=== PATIENT | female | born 1985 | race American Indian/Alaskan Native ===

== ENCOUNTER 2017-09-15 03:12 | Emergency (ER) | payer OTHER ==
[2017-09-15 05:22] LABS: Hematocrit 37.3 % (30.3-42.9); Hemoglobin 12.6 gm/dl (10.1-14.3); Mean Corpuscular HGB Conc 34 % (30-34); Mean Corpuscular Hemoglobin 30 pg (28-32); Mean Corpuscular Volume 88 fl (79-97); Platelet Count 239 K/mm3 (140-440); Red Blood Count 4.22 M/mm3 (3.65-5.03); Red Cell Distribution Width 13.4 % (13.2-15.2); White Blood Count 6.6 K/mm3 (4.5-11.0)
[2017-09-15 05:31] LABS: Bacteria,Urine 2+ /HPF (Negative); Bilirubin,Urine NEG (Negative); Blood,Urine LG (Negative); Ketones,Urine NEG (Negative); Leukocyte Esterase,Urine NEG (Negative); Mucus,Urine 2+ /HPF; Nitrite,Urine NEG (Negative); Urobilinogen,Urine < 2.0 mg/dL (<2.0)
[2017-09-15 05:39] LABS: Albumin 4.3 g/dL (3.9-5); Albumin/Globulin Ratio 1.4 %; Alkaline Phosphatase 69 units/L (35-129); BUN/Creatinine Ratio 16; Blood Urea Nitrogen 11 mg/dL (7-17); Calcium 9.4 mg/dL (8.4-10.2); Carbon Dioxide 24 mmol/L (22-30); Chloride 103.3 mmol/L (98-107); Glucose 86 mg/dL (65-100); Lipase 33 units/L (13-60); Sodium 140 mmol/L (137-145); Total Protein 7.4 g/dL (6.3-8.2)
[2017-09-15 06:03] LABS: Anisocytosis 1+; Basophils % (Manual) 0 % (0.0-1.8); Blastocytes % (Manual) 0 %; Diff Status Complete; Elliptocytes 1+; Helmet Cells Rare; Ovalocytes 2+; Stomatocytes Few
[2017-09-15 07:20] LABS: Alanine Aminotransferase 8 units/L (7-56); Anion Gap 18 mmol/L; Potassium 5.2 mmol/L (3.6-5.0)
[2017-09-15] MEDS ORDERED: ZOFRAN IV ONE (11:35)
[2017-09-15] MEDS ORDERED: PEPCID IV ONE (11:35)
--- NOTE | 2017-09-15 11:42 | Emergency Department Report ---
ED Abdominal Pain HPI - General Chief Complaint: Abdominal Pain Stated Complaint: ABD/BACK PAIN Time Seen by Provider: 09/15/17 11:13 Source: patient, family Mode of arrival: Ambulatory Limitations: No Limitations - History of Present Illness MD Complaint: abdominal pain -: Gradual Location: epigastric Radiation: back Migration to: no migration Severity: moderate Severity scale (0 -10): 7 Quality: cramping, aching Consistency: constant Improves With: nothing Worsens With: nothing Associated Symptoms: nausea, hematuria (py). denies: vomiting, diarrhea, fever , chills, constipation, hematemesis, melena - Related Data LMP Date: 09/15/17 (pt is on her menses now) Previous Rx's Medication Instructions Recorded Last Taken Type Ciprofloxacin HCl [Cipro] 500 mg PO BID #14 tablet 09/15/17 09/20/17 13:00 Rx Ondansetron [Zofran Odt] 4 mg PO TID PRN #10 tab.rapdis 09/15/17 09/19/17 Rx oxyCODONE /ACETAMINOPHEN [Percocet 1 tab PO Q6H PRN #20 tablet 09/21/17 Unknown Rx 5/325 mg] Allergies Allergy/AdvReac Type Severity Reaction Status Date / Time No Known Allergies Allergy Unverified 09/20/17 15:15 ED Review of Systems ROS: Stated complaint: ABD/BACK PAIN Other details as noted in HPI Comment: All other systems reviewed and negative ED Past Medical Hx - Past Medical History Previous Medical History?: No - Surgical History Past Surgical History?: No - Social History Smoking Status: Never Smoker Substance Use Type: None - Medications Home Medications: Home Medications Medication Instructions Recorded Confirmed Last Taken Type Ciprofloxacin HCl [Cipro] 500 mg PO BID #14 tablet 09/15/17 09/21/17 09/20/17 13 :00 Rx Ondansetron [Zofran Odt] 4 mg PO TID PRN #10 tab.rapdis 09/15/17 09/21/17 Rx oxyCODONE /ACETAMINOPHEN [Percocet 1 tab PO Q6H PRN #20 tablet 09/21/17 Unknown Rx 5/325 mg] ED Physical Exam - General Limitations: No Limitations General appearance: alert, in no apparent distress - Head Head exam: Present: atraumatic, normocephalic - Eye Eye exam: Present: normal appearance - ENT ENT exam: Present: mucous membranes moist - Neck Neck exam: Present: normal inspection - Respiratory Respiratory exam: Present: normal lung sounds bilaterally. Absent: respiratory distress - Cardiovascular Cardiovascular Exam: Present: regular rate, normal rhythm. Absent: systolic murmur, diastolic murmur, rubs, gallop - GI/Abdominal GI/Abdominal exam: Present: soft, tenderness (generalized), normal bowel sounds. Absent: distended, guarding, rebound - Extremities Exam Extremities exam: Present: normal inspection - Back Exam Back exam: Present: normal inspection - Neurological Exam Neurological exam: Present: alert, oriented X3 - Psychiatric Psychiatric exam: Present: normal affect, normal mood - Skin Skin exam: Present: warm, dry, intact, normal color. Absent: rash ED Course Vital Signs 09/15/17 09/15/17 09/15/17 04:46 05:53 06:00 Temperature 97.7 F Pulse Rate 82 77 59 L Respiratory 16 16 16 Rate Blood Pressure 107/67 108/67 Blood Pressure [Left] O2 Sat by Pulse 100 100 Oximetry 09/15/17 09/15/17 09/15/17 06:04 06:15 06:30 Temperature Pulse Rate 55 L 90 Respiratory 20 15 13 Rate Blood Pressure 108/67 98/76 Blood Pressure [Left] O2 Sat by Pulse 100 100 98 Oximetry 09/15/17 09/15/17 09/15/17 06:45 07:00 07:15 Temperature Pulse Rate 56 L 68 56 L Respiratory 14 10 L 16 Rate Blood Pressure 98/76 113/60 113/60 Blood Pressure [Left] O2 Sat by Pulse 100 99 99 Oximetry 09/15/17 09/15/17 09/15/17 07:20 07:30 07:45 Temperature 97.6 F Pulse Rate 64 67 Respiratory 15 19 Rate Blood Pressure 109/70 109/70 Blood Pressure [Left] O2 Sat by Pulse 100 Oximetry 09/15/17 09/15/17 09/15/17 08:00 08:15 08:30 Temperature Pulse Rate 64 58 L 70 Respiratory 16 16 14 Rate Blood Pressure 100/70 100/70 101/68 Blood Pressure [Left] O2 Sat by Pulse 99 Oximetry 09/15/17 09/15/17 09/15/17 08:45 09:00 09:15 Temperature Pulse Rate 81 69 72 Respiratory 17 18 18 Rate Blood Pressure 101/68 106/73 106/73 Blood Pressure [Left] O2 Sat by Pulse 100 100 100 Oximetry 09/15/17 09/15/17 09/15/17 09:30 09:45 10:01 Temperature Pulse Rate 58 L 69 85 Respiratory 16 14 18 Rate Blood Pressure 107/68 107/68 107/68 Blood Pressure [Left] O2 Sat by Pulse 100 100 Oximetry 09/15/17 09/15/17 09/15/17 10:50 10:52 11:13 Temperature 98.3 F Pulse Rate Respiratory Rate Blood Pressure 107/68 107/68 Blood Pressure [Left] O2 Sat by Pulse 94 Oximetry 09/15/17 09/15/17 09/15/17 11:15 11:31 11:45 Temperature Pulse Rate 80 62 65 Respiratory 17 16 Rate Blood Pressure 107/68 107/68 107/68 Blood Pressure [Left] O2 Sat by Pulse 85 100 100 Oximetry 09/15/17 15:39 Temperature Pulse Rate 69 Respiratory Rate Blood Pressure Blood Pressure 110/70 [Left] O2 Sat by Pulse Oximetry ED Medical Decision Making - Lab Data Result diagrams: 09/15/17 04:59 09/15/17 04:59 - Medical Decision Making Patient is a 32-year-old -[place] Citizen female who is presenting abdominal pain. Patient pain was controlled in the emergency department. Patient had imaging studies that show possible cholecystitis. Patient's chart was reviewed by general surgery and it was noted that the patient could follow-up outpatient tomorrow with Dr. Baldwin Critical care attestation.: If time is entered above; I have spent that time in minutes in the direct care of this critically ill patient, excluding procedure time. ED Disposition Clinical Impression: Cholelithiasis Disposition: DC-01 TO HOME OR SELFCARE Is pt being admited?: No Does the pt Need Aspirin: No Condition: Fair Instructions: Biliary Colic (ED), Abdominal Pain (ED) Additional Instructions: Please see doctor EBONI, at her office Monday at 10:30 AM Prescriptions: Ciprofloxacin HCl [Cipro] 500 mg PO BID #14 tablet Ondansetron [Zofran Odt] 4 mg PO TID PRN #10 tab.rapdis PRN Reason: Nausea Referrals: WAI MA MD [Primary Care Provider] - 3-5 Days Forms: Work/School Release Form(ED)
--- NOTE | 2017-09-15 12:52 | Cat Scan Report ---
CT of the abdomen and pelvis with IV and oral contrast. History: Upper abdominal pain. Findings: The liver, spleen, pancreas, and kidneys are normal. There is at least one calcified gallstone measuring 9 mm in diameter. There appears be mild pericholecystic fluid treated the wall of the gallbladder is borderline thickened. The uterus and adnexal regions are normal. No free air is identified. Impression: Cholelithiasis with possible pericholecystic inflammatory changes. Correlation with gallbladder ultrasound is recommended.
--- NOTE | 2017-09-15 15:06 | Ultrasound Report ---
Ultrasound of the right upper quadrant. History: Right upper quadrant pain. Findings: The abdominal aorta and liver are normal. There multiple gallstones. The gallbladder is contracted resulting in suboptimal evaluation of the thickness of the gallbladder wall. The best estimate of the wall thickness is 3 mm, probably normal in a contracted state. There is no pericholecystic fluid. Common bile duct is normal in caliber. The right kidney is unremarkable. The pancreas is not well imaged. Impression: Multiple gallstones. No pericholecystic fluid. Evaluation of the gallbladder wall thickness is limited due to the contracted state of the gallbladder.
[2017-09-15 15:40] VITALS: BP 110/70
== END 2017-09-15 15:40 | disposition home or self-care (01) ==
LOC: ED 03:12
DX: R10.13 Epigastric pain (principal); R11.0 Nausea; R31.9 Hematuria, unspecified
CPT/HCPCS: 36415; 74177; 76705; 80053; 81001; 83690; 84703; 85007; 85025; 96374; 96375; 99284; J2405; Q9967

== ENCOUNTER 2017-09-21 05:43 | Day surgery (SDC) | payer OTHER ==
[2017-09-21] MEDS ORDERED: NACL BACTERIOSTATIC INFILTRATI ONE (06:18)
--- NOTE | 2017-09-21 06:55 | Anesthesia Day of Surgery ---
Anesthesia Day of Surgery - Day of Surgery Patient Examined: Yes Patient H&P Reviewed: Yes Patient is NPO: Yes
--- NOTE | 2017-09-21 06:55 | Anesthesia Consultation ---
Anesthesia Consult and Med Hx Date of service: 09/21/17 - Airway Anesthetic Teeth Evaluation: Good ROM Head & Neck: Adequate Mental/Hyoid Distance: Adequate Mallampati Class: Class I Intubation Access Assessment: Good - Pulmonary Exam CTA: Yes - Cardiac Exam Cardiac Exam: RRR - Pre-Operative Health Status ASA Pre-Surgery Classification: ASA1 - Pulmonary Hx Smoking: Yes (former) - Central Nervous System Hx Psychiatric Problems: No - Other Systems Hx Cancer: No
[2017-09-21] MEDS ORDERED: PERCOCET 5/325 PO PRN (06:56)
[2017-09-21] MEDS ORDERED: ZOFRAN IV PRN (06:56)
[2017-09-21] MEDS ORDERED: PEPCID PO NR (07:00)
[2017-09-21] MEDS ORDERED: VERSED IV NR (07:00)
[2017-09-21] MEDS ORDERED: LACTATED RINGERS 1,000 ML IV SCH (07:00)
[2017-09-21] MEDS ORDERED: LACTATED RINGERS 1,000 ML ONE ×2 (07:00→09:02)
[2017-09-21] MEDS ORDERED: NEOSTIGMINE ONE (07:13)
[2017-09-21] MEDS ORDERED: XYLOCAINE MPF 2% ONE (07:13)
[2017-09-21] MEDS ORDERED: DECADRON ONE (07:13)
[2017-09-21] MEDS ORDERED: ZOFRAN ONE (07:13)
[2017-09-21] MEDS ORDERED: ROBINUL ONE ×2 (07:13)
[2017-09-21] MEDS ORDERED: ZEMURON IV ONE (07:13)
[2017-09-21] MEDS ORDERED: DIPRIVAN 10 MG/ML IV ONE (07:13)
[2017-09-21] MEDS ORDERED: SUBLIMAZE ONE (07:13)
[2017-09-21] MEDS ORDERED: MARCAINE 0.5% 30 ML INFILTRATI ONE (07:14)
[2017-09-21] MEDS ORDERED: XYLOCAINE 1% 20 mL ONE (07:14)
[2017-09-21] MEDS ORDERED: ANCEF/STERILE WATER 2 GM/20 ML IV NR (08:00)
[2017-09-21] MEDS ORDERED: MARCAINE 0.5% INFILTRATI ONE (08:03)
[2017-09-21] MEDS ORDERED: XYLOCAINE 1% 20 mL INFILTRATI ONE (08:03)
[2017-09-21] MEDS ORDERED: DILAUDID ONE (08:25)
[2017-09-21] MEDS ORDERED: NACL 0.9% IR ONE ×2 (08:50→08:55)
--- NOTE | 2017-09-21 09:19 | Short Stay Summary ---
Short Stay Documentation Date of service: 09/21/17 Narrative H&P: 32 yo F who presented to the ER with c/o epigastric abd pain and was found to have cholelithiasis. She was seen in the office and set up for an elective cholecystectomy. She has no complaints. - History H&P: obtained from office - Allergies and Medications Current Medications: Allergies No Known Allergies Allergy (Unverified 09/20/17 15:15) Home Medications Medication Instructions Recorded Confirmed Last Taken Type Ciprofloxacin HCl [Cipro] 500 mg PO BID #14 tablet 09/15/17 09/21/17 09/20/17 13 :00 Rx HYDROcodone/APAP 5-325 [[place] 1 each PO Q4HR PRN #20 tablet 09/15/17 09/21/17 13:00 Rx 5/325] Ondansetron [Zofran Odt] 4 mg PO TID PRN #10 tab.rapdis 09/15/17 09/21/17 Rx Active Medications Cefazolin Sodium (Ancef/Sterile Water 2 Gm/20 Ml) 2 gm IV PREOP NR Stop: 09/21/17 23:59 Famotidine (Pepcid) 20 mg PO PREOP NR Stop: 09/21/17 23:59 Last Admin: 09/21/17 07:17 Dose: 20 mg Lactated Ringer's (Lactated Ringers) 1,000 mls @ 100 mls/hr IV DIRECT KOLE Last Admin: 09/21/17 07:05 Dose: 100 mls/hr Midazolam HCl (Versed) 2 mg IV PREOP NR Stop: 09/21/17 23:59 Last Admin: 09/21/17 07:26 Dose: 2 mg Morphine Sulfate (Morphine) 2 mg IV Q10MIN PRN PRN Reason: Pain, Moderate (4-6) Stop: 09/21/17 18:00 Ondansetron HCl (Zofran) 4 mg IV ONCE PRN PRN Reason: Nausea And Vomiting Stop: 09/21/17 18:00 Oxycodone/Acetaminophen (Percocet 5/325) 1 tab PO ONCE PRN PRN Reason: Pain, Moderate (4-6) Stop: 09/21/17 18:00 - Brief post op/procedure progress note Date of procedure: 09/21/17 Pre-op diagnosis: symptomatically cholelithiasis Post-op diagnosis: same Procedure: Laparoscopic cholecystectomy Anesthesia: GETA, local Findings: Gallbladder with multiple large stones. Adhesions from the right colon to the liver Surgeon: JAH LYN Estimated blood loss: minimal Pathology: list (gallbladder) Specimen disposition: to lab Condition: stable - Hospital course Hospital course: 32-year-old female status post laparoscopic cholecystectomy. She was recovered in the recovery room and discharged home in stable condition when criteria was met. - Disposition Condition at discharge: Good Disposition: DC-01 TO HOME OR SELFCARE - Discharge Diagnoses (1) Cholelithiasis Status: Acute Short Stay Discharge Plan Activity: other (no heavy lifting greater than 20 lbs until seen by surgeon. No driving if taking narcotic pain meds.) Diet: regular Wound: open to air, other (May shower tomorrow. No baths, hot tubs, pools until incisions are healed. Pat Incisions dry, do not scrub) Additional Instructions: Call surgeon's office if you have fevers greater than 100.4, intractable nausea , vomiting, abdominal pain. Or if you have pus draining from your incision, redness around the incisions Follow up with: WAI MA MD [Primary Care Provider] - 7 Days JAH LYN DO [Staff Physician] - 14 Days
--- NOTE | 2017-09-21 09:28 | Operative Report ---
Operative Report Operative Report: Date of operation: 09/21/2017 Preoperative diagnosis: Symptomatic cholelithiasis Postoperative diagnosis: Same as above Procedure performed: Laparoscopic Cholecystectomy Surgeon: Raffi Baldwin DO Anesthesia: Gen. endotracheal anesthesia Findings: Gallbladder with large stones, adhesions from colon to the liver Specimen: Gallbladder EBL: 5 mL Complications: None Disposition: Stable to PACU HPI and Indication: Patient is a 32-year-old female presented to the emergency with complaints of epigastric abdominal pain radiating to the right upper quadrant into her back. This has been ongoing and intermittent for the past several weeks. She was found to have cholelithiasis. She was seen in the office to schedule elective cholecystectomy. All the risks and benefits were discussed with the patient and consent was signed. Sutured in detail: The patient was identified in the preoperative area and taken back to operating room and placed on the operating table in supine position. After anesthesia was induced the abdomen was prepped and draped in the usual sterile fashion and a timeout was performed. Local anesthetic was infiltrated into the skin at all incision sites. A 5 mm super umbilical incision was made using an 11 blade and a veress needle was introduced through this incision. The positioning of a veress needle was confirmed with a saline drop test. Abdomen was then insufflated to 15 mmHg. Once insufflated, the Veress needle was removed and a 5 mm trocar was placed through this incision using Visiport. Abdomen was inspected and there was no underlying injury to any of the abdominal contents. Additional subxiphoid 12 mm trocar and 5 mm right upper quadrant trocar was placed under direct visualization. The gallbladder was then grasped and lifted cephalad. There were adhesions from the right colon to the liver which were obscuring part of the gallbladder and were taken down using scissors. The cystic duct and artery were then meticulously dissected and skeletonized. The cystic plate was cleared of peritoneum and the cystic duct and artery with only 2 structures seen entering the gallbladder. These were then clipped with 3 clips placed proximally on the cystic duct and one distally, and 2 clips placed proximally on the cystic artery and one distal. The cystic artery and duct were then transected between the clips using EndoShears. The gallbladder was then dissected off the liver bed using hook electrocautery. It was placed into an Endo Catch bag and removed from the abdomen via the 12 mm port. The abdomen is then inspected and hemostasis ensured. The gallbladder fossa and liver bed were inspected and there was no bleeding or bile leakage. The clips were identified and intact on both cystic artery and duct. The gallbladder fossa and Morison's pouch were irrigated with saline. The abdomen was then desufflated and all ports removed under direct visualization. The 12 mm port fascia was closed with a single interrupted 0 Vicryl stitch. All skin incisions were closed with 4-0 Monocryl subcuticular stitches and skin glue. At the end of the case, all sharps, instrument, sponge counts were correct 2. The patient was awoken from anesthesia, extubated and taken to PACU in stable condition.
--- NOTE | 2017-09-21 09:36 | Post Anesthesia Evaluation ---
- Post Anesthesia Evaluation Patient Participated: Yes Airway Patent: Yes Stable Respiratory Function: Yes Temp > 96.8F: Yes Pain Manageable: Yes Adequeate Hydration: Yes Anesthesia Complications: No
[2017-09-21] MEDS: MORPHINE IV PRN ×2 (09:45→10:05)
[2017-09-21 10:41] VITALS: BP 110/62
== END 2017-09-21 11:16 | disposition home or self-care (01) ==
LOC: OR 05:43
PROVIDERS: ATTEND Surgery
DX: K80.10 Calculus of gallbladder with chronic cholecystitis without obstruction (principal); Z87.891 Personal history of nicotine dependence
CPT/HCPCS: 36415; 47562; 81025; 84132; 88304; A4217; J0690; J1100; J1170; J2250; J2270; J2405; J2704; J2710; J3010; J7120